=== PATIENT | female | born 1995 | race Caucasian/White ===

== ENCOUNTER → 2021-03-19 | Outpatient (CLI) | payer OTHER | LOC: M WHC 09:04 | PROVIDERS: ATTEND Advanced Practice Midwife | DX: Z53.9 Procedure and treatment not carried out, unspecified reason (principal); Z12.4 Encounter for screening for malignant neoplasm of cervix; R10.2 Pelvic and perineal pain ==

== ENCOUNTER → 2021-03-19 | Outpatient (REF) | payer OTHER | LOC: M SFHCWAGY 13:33 | PROVIDERS: ATTEND Advanced Practice Midwife | DX: Z12.4 Encounter for screening for malignant neoplasm of cervix (principal) | CPT/HCPCS: G0123; G0463 ==

== ENCOUNTER → 2021-04-13 | Outpatient (CLI) | payer OTHER ==
--- NOTE | 2021-04-13 11:08 | REP ---
INDICATION: PELVIC PAIN. COMPARISON: None. TECHNIQUE: Transabdominal endovaginal probe pelvic ultrasound FINDINGS: Bladder is only partially filled at 8.1 x 6 x 1.7 cm. Uterus is anteverted. It measures 7.7 x 5.3 x 3 cm is a thin echogenic endometrial stripe at 1.3 mm without fluid in the endometrial cavity or endocervical canal. No uterine contour abnormality or discrete mass. No fluid in the cul-de-sac. Left ovary is seen only on transabdominal images and measures 4.2 x 2.8 x 2.7 cm giving calculated volume of 16.6 cc. Doppler tracing shows resistive index of 0.8 with normal color flow to the ovary. No mass or adjacent free fluid. There are a few subcentimeter follicles. The right ovary is 6.2 x 3.5 x 4.3 cm on EV probe giving calculated volume of 48.8 cc. Within it is a simple cyst measuring 3.7 x 4.1 x 3.5 cm with simple cyst characteristics. There are other follicles and some up to 2 cm in size. There is no fluid adjacent to the ovary. The Doppler tracing on the right shows resistive index 0.6 and with normal color flow into that ovary. IMPRESSION: 1. Right ovary with a 4.1 x 3.7 cm simple cyst. Multiple follicles in the ovary were also seen the largest about 2 cm. No adjacent free fluid or solid mass. Normal color Doppler flow, no torsion. 2. Left ovary normal size without cyst or solid mass. This is only seen on transabdominal images. Normal color flow and Doppler, no torsion, mass or free fluid. 3. Uterus, endometrial stripe and cervix grossly unremarkable no fluid the endometrial cavity or endocervical canal and with no free fluid in the cul-de-sac. <Electronically signed by David Singh > 04/13/21 [id number]
--- NOTE | 2021-04-13 11:09 | REP ---
INDICATION: PELVIC PAIN. COMPARISON: None. FINDINGS: Please see dictation in the pelvis file IMPRESSION: Please see dictation in the pelvis file <Electronically signed by David Singh > 04/13/21 [id number]
== END ==
LOC: M WHC 08:10
PROVIDERS: ATTEND Advanced Practice Midwife
DX: Z12.4 Encounter for screening for malignant neoplasm of cervix (principal); R10.2 Pelvic and perineal pain; N83.01 Follicular cyst of right ovary

== ENCOUNTER → 2022-07-02 | Outpatient (REF) | payer OTHER | LOC: M SFHCWAGY 16:58 | PROVIDERS: ATTEND Advanced Practice Midwife | DX: Z12.4 Encounter for screening for malignant neoplasm of cervix (principal) ==